=== PATIENT | female | born 1965 | race Caucasian/White ===

== ENCOUNTER → 2017-12-17 14:00 | Outpatient (CLI) | payer BC, SELFPAY ==
--- NOTE | 2017-12-17 14:00 | EMB_PTH ---
PATIENT: ZIA MCLAUGHLIN LOC: [facility] U#:[id number] AGE/SX: 59/F ROOM: RE12/17/[address]: Dr. Romaine Prater MD : [id number] BED: DIS: SPEC #: [id number] RECD: 12/18/17 10:34 STATUS: ZULY ROSIE #: [id number] GALE: 12/17/17 14:[address]: Romaine Prater DEPT: SURGICAL PATHOLOGY RECD BY: Lopez Martin Tissues: A - Endometrium, NOS B - Vagina, NOS Procedures: Special Stain Group II Surgery Specimen Level IV Iron Stain (control) HEADER OPERATION: Endometrial biopsy PRE-OP DIAGNOSIS: N95.0 TISSUE SUBMITTED: A - Endometrial biopsy, B - Vaginal wall lesion MICROSCOPIC DIAGNOSIS A. Endometrial biopsy: Strips of benign endometrial epithelium, consistent with atrophic endometrium and mucous. B. Vaginal wall lesion, biopsy: A piece of squamous mucosa with congestion, hemorrhage, chronic inflammation and old hemorrhage. Negative for malignancy. See comment. TANK:jonah 12/19/17 COMMENT Iron stain with matched control is used in the evaluation of the specimen and supports the diagnosis of old hemorrhage. Correlation with clinical findings and appropriate follow up are necessary. MICROSCOPIC DESCRIPTION Slides are reviewed. GROSS DESCRIPTION A - Received in fixative is one container labeled with the patient's name and designated EM biopsy. The specimen consists of multiple irregular fragments of bryant mucoid tissue that in aggregate measure 1.5 x 0.5 x 0.1 cm. The specimen is totally submitted in one cassette. B - Received in fixative is one container labeled with the patient's name and designated vaginal wall lesion. The specimen consists of a piece of bryant-brown soft tissue measuring 0.3 x 0.2 x 0.1 cm. The specimen is totally submitted in one cassette. / TANK:jonah 12/18/17 TC:3 CPT: 18646 x2, [id number]
== END ==
PROVIDERS: Referring Provider Obstetrics & Gynecology; Visit Provider Obstetrics & Gynecology
DX: N95.0 Postmenopausal bleeding (principal); N93.0 Postcoital and contact bleeding
CPT/HCPCS: 88305; 88313

== ENCOUNTER 2021-05-23 17:52 | Outpatient (CLI) | payer BC, SELFPAY ==
[2021-05-29 16:00] LABS: HPV Reflexed? NOT INDICATED
== END 2021-05-23 23:59 | disposition home or self-care (01) ==
PROVIDERS: Visit Provider Obstetrics & Gynecology
DX: Z12.4 Encounter for screening for malignant neoplasm of cervix (principal)
CPT/HCPCS: 88175; G0145